=== PATIENT | female | born 1985 | race African-American/Black ===

== ENCOUNTER 2023-06-09 13:58 | Emergency (ER) | payer SELFPAY ==
[2023-06-09] MEDS ORDERED: Acetaminophen 500 MG TAB ONE (15:20)
[2023-06-09] MEDS ORDERED: Ibuprofen 200 MG TAB ONE (15:21)
[2023-06-09 17:04] LABS: SARS-CoV-2 NAA Rapid Test Not Detected (NotDetected)
== END 2023-06-09 17:36 | disposition home or self-care (01) ==
LOC: ERS 13:58
DX: J10.1 Influenza due to other identified influenza virus with other respiratory manifestations (principal); F17.290 Nicotine dependence, other tobacco product, uncomplicated; Z20.822 Contact with and (suspected) exposure to COVID-19
CPT/HCPCS: 99283